=== PATIENT | female | born 1995 | race Caucasian/White ===

== ENCOUNTER 2017-08-26 19:44 | Emergency (ER) | payer OTHER ==
[2017-08-26 20:46] LABS: ABS Basophils 0 10^3/ul (0-0.2); ABS Eosinophils 0 10^3/ul (0-0.6); ABS Lymphocytes 2.3 10^3/ul (1.0-4.8); ABS Monocytes 0.5 10^3/ul (0-0.8); ABS Nucleated RBC 0 10^3/ul; Eosinophil % 0 % (0-6); Hematocrit 40 % (35-47); Hemoglobin 14.1 g/dl (12.0-16.0); Lymphocyte % 21.4 % (25-47); Mean Corpuscular HGB Conc 35 g/dl (31-36); Mean Corpuscular Hemoglobin 31 pg (27-31); Mean Corpuscular Volume 89 fL (80-97); Mean Platelet Volume 8.5 um3 (7.4-10.4); Nucleated Red Blood Cells % 0; Platelet Count 198 10^3/ul (150-450); Red Blood Count 4.52 10^6/ul (4.0-5.4); Red Cell Distribution Width 13 % (10.5-15); White Blood Count 10.8 10^3/ul (3.5-10.8)
[2017-08-26 21:08] LABS: EGFR Non-African American 113.4 (>60)
[2017-08-26 21:41] LABS: Urine Appearance Clear; Urine Blood 3+ (Negative); Urine Color Straw; Urine Ketones Negative (Negative); Urine Protein Negative (Negative); Urine Specific Gravity 1.004 (1.010-1.030); Urine Urobilinogen Negative (Negative)
--- NOTE | 2017-08-26 21:41 | ED ---
Jeremi Mckeon Thomas, scribed for Conner Almendarez MD on 08/26/17 at 2113 . Psychiatric Complaint - HPI Summary HPI Summary: The patient is a 21 year old female who brought herself to the emergency department today with suicidal ideation. She has a history of anxiety and depression. She is on Effexor. She used some marijuana earlier today. - History Of Current Complaint Chief Complaint: EDMentalHealth Time Seen by Provider: 08/26/17 20:06 Hx Obtained From: Patient Onset/Duration: Still Present Severity Currently: Moderate Character: Depressed Aggravating Factor(s): Nothing Alleviating Factor(s): Nothing Related History: Positive For: Prior Psychiatric Issues Has Suicidal: Reports: Thoughts - Allergies/Home Medications Allergies/Adverse Reactions: Allergies Allergy/AdvReac Type Severity Reaction Status Date / Time amoxicillin Allergy Rash Verified 08/26/17 19:46 PMH/Surg Hx/FS Hx/Imm Hx EENT History: Denies: Hx Deafness Psychiatric History: Reports: Hx Anxiety, Hx Depression Infectious Disease History: No Infectious Disease History: Denies: Traveled Outside the [place] in Last 30 Days - Family History Known Family History: Negative: Blood Disorder - Social History Alcohol Use: Occasionally Substance Use Type: Reports: Marijuana Smoking Status (MU): Light Every Day Tobacco Smoker Review of Systems Negative: Fever Positive: Other - SI All Other Systems Reviewed And Are Negative: Yes Physical Exam - Summary Physical Exam Summary: General: well-appearing, no pain distress Skin: warm, color reflects adequate perfusion, dry Head: normal Eyes: EOMI, VICTOR MANUEL ENT: normal Neck: supple, nontender Respiratory: CTA, breath sounds present Cardiovascular: RRR Abdomen: soft, nontender Bowel: present Musculoskeletal: normal, strength/ROM intact Neurological: normal, sensory/motor intact, A&O x3 Psychological: affect/mood appropriate Triage Information Reviewed: Yes Vital Signs On Initial Exam: Initial Vitals Temp Pulse Resp BP Pulse Ox 99.5 F 123 20 136/96 99 08/26/17 19:46 08/26/17 19:46 08/26/17 19:46 08/26/17 19:46 08/26/17 19:46 Vital Signs Reviewed: Yes Diagnostics - Vital Signs Vital Signs Temp Pulse Resp BP Pulse Ox 08/26/17 19:46 99.5 F 123 20 136/96 99 - Laboratory Lab Results: Lab Results 08/26/17 08/26/17 Range/Units 20:38 20:39 WBC 10.8 (3.5-10.8) 10^3/ul RBC 4.52 (4.0-5.4) 10^6/ul Hgb 14.1 (12.0-16.0) g/dl Hct 40 (35-47) % MCV 89 (80-97) fL MCH 31 (27-31) pg MCHC 35 (31-36) g/dl RDW 13 (10.5-15) % Plt Count 198 (150-450) 10^3/ul MPV 8.5 (7.4-10.4) um3 Neut % (Auto) 73.8 (38-83) % Lymph % (Auto) 21.4 L (25-47) % [place] % (Auto) 4.4 (0-7) % Eos % (Auto) 0 (0-6) % Baso % (Auto) 0.4 (0-2) % Absolute Neuts (auto) 8.0 H (1.5-7.7) 10^3/ul Absolute Lymphs (auto) 2.3 (1.0-4.8) 10^3/ul Absolute Monos (auto) 0.5 (0-0.8) 10^3/ul Absolute Eos (auto) 0 (0-0.6) 10^3/ul Absolute Basos (auto) 0 (0-0.2) 10^3/ul Absolute Nucleated RBC 0 10^3/ul Nucleated RBC % 0 Sodium 138 L (139-145) mmol/L Potassium 3.8 (3.5-5.0) mmol/L Chloride 105 (101-111) mmol/L Carbon Dioxide 25 (22-32) mmol/L Anion Gap 8 (2-11) mmol/L BUN 8 (6-24) mg/dL Creatinine 0.67 (0.51-0.95) mg/dL Est GFR ( Amer) 145.8 (>60) Est GFR (Non-Af Amer) 113.4 (>60) BUN/Creatinine Ratio 11.9 (8-20) Glucose 92 (70-100) mg/dL Calcium 9.2 (8.6-10.3) mg/dL Total Bilirubin 0.40 (0.2-1.0) mg/dL AST 17 (13-39) U/L ALT 9 (7-52) U/L Alkaline Phosphatase 69 (34-104) U/L Total Protein 6.7 (6.4-8.9) g/dL Albumin 4.2 (3.2-5.2) g/dL Globulin 2.5 (2-4) g/dL Albumin/Globulin Ratio 1.7 (1-3) TSH Pending Beta HCG, Quant Pending Salicylates < 2.50 (<30) mg/dL Acetaminophen < 15 mcg/mL Serum Alcohol < 10 (<10) mg/dL Result Diagrams: 08/26/17 20:39 08/26/17 20:38 Lab Statement: Any lab studies that have been ordered have been reviewed, and results considered in the medical decision making process. Course/Dx - Course Assessment/Plan: MHE and disposition are pending at shift change. Patient is signed out to Dr. Ji. - Differential Dx/Clinical Impression Provider Diagnosis: Mental health problem Discharge - Sign-Out/Discharge Documenting (check all that apply): Sign-Out Patient Signing out patient TO: Kin Ji - Discharge Plan Condition: Stable [place] [place]errals: Bindu Lane NP [Primary Care Provider] - - Billing Disposition and Condition Condition: STABLE [place]position[place] [facility] [place] The documentation as recorded by the Jeremi black Thomas accurately reflects the service I personally performed and the decisions made by me, Conner Almendarez MD.
--- NOTE | 2017-08-27 06:32 | PN ---
ED Flex Patient Progress Note Subjective: This is a 22 year-old F who is pending psychiatric eval secondary to worsening anxiety, depression . Pt offers no complaints at this time. NOTE: hematuria is most likely 2ndry to the fact she is currently menstruating. Objective: Vitals: Most recent vital signs documented below. General NAD, Alert and oriented x3. Heart: rrr s1/s2 Lungs: CTA breathing easily Laboratory: Current laboratory results documented below. Assessment: worsening anxiety/depression Plan: Pending psychiatric eval. will follow up daily ___while in ED__. Vital Signs Temp Pulse Resp BP Pulse Ox 97.8 F 64 14 111/72 99 08/27/17 06:29 08/27/17 06:29 08/27/17 06:29 08/27/17 06:29 08/27/17 06:29 Lab Results - Entire Visit 08/26/17 08/26/17 08/26/17 21:19 21:19 20:39 WBC 10.8 RBC 4.52 Hgb 14.1 Hct 40 MCV 89 MCH 31 MCHC 35 RDW 13 Plt Count 198 MPV 8.5 Neut % (Auto) 73.8 Lymph % (Auto) 21.4 L [place] % (Auto) 4.4 Eos % (Auto) 0 Baso % (Auto) 0.4 Absolute Neuts (auto) 8.0 H Absolute Lymphs (auto) 2.3 Absolute Monos (auto) 0.5 Absolute Eos (auto) 0 Absolute Basos (auto) 0 Absolute Nucleated RBC 0 Nucleated RBC % 0 Sodium Potassium Chloride Carbon Dioxide Anion Gap BUN Creatinine Est GFR ( Amer) Est GFR (Non-Af Amer) BUN/Creatinine Ratio Glucose Calcium Total Bilirubin AST ALT Alkaline Phosphatase Total Protein Albumin Globulin Albumin/Globulin Ratio TSH Beta HCG, Quant Urine Color Straw Urine Appearance Clear Urine pH 7.0 Ur Specific [place] 1.004 L Urine Protein Negative Urine Ketones Negative Urine Blood 3+ A Urine Nitrate Negative Urine Bilirubin Negative Urine Urobilinogen Negative Ur Leukocyte Esterase Negative Urine WBC (Auto) Absent Urine RBC (Auto) Trace(0-2/hpf) Ur Squamous Epith Cells Present A Urine Bacteria Absent Urine Glucose Negative Salicylates Urine Opiates Screen None detected Acetaminophen Ur Barbiturates Screen None detected Ur Phencyclidine Scrn None detected Ur Amphetamines Screen None detected U Benzodiazepines Scrn None detected Urine Cocaine Screen None detected U Cannabinoids Screen Presumptive positive A Serum Alcohol 08/26/17 20:38 WBC RBC Hgb Hct MCV MCH MCHC RDW Plt Count MPV Neut % (Auto) Lymph % (Auto) [place] % (Auto) Eos % (Auto) Baso % (Auto) Absolute Neuts (auto) Absolute Lymphs (auto) Absolute Monos (auto) Absolute Eos (auto) Absolute Basos (auto) Absolute Nucleated RBC Nucleated RBC % Sodium 138 L Potassium 3.8 Chloride 105 Carbon Dioxide 25 Anion Gap 8 BUN 8 Creatinine 0.67 Est GFR ( Amer) 145.8 Est GFR (Non-Af Amer) 113.4 BUN/Creatinine Ratio 11.9 Glucose 92 Calcium 9.2 Total Bilirubin 0.40 AST 17 ALT 9 Alkaline Phosphatase 69 Total Protein 6.7 Albumin 4.2 Globulin 2.5 Albumin/Globulin Ratio 1.7 TSH 1.19 Beta HCG, Quant < 0.60 Urine Color Urine Appearance Urine pH Ur Specific Kimberly Urine Protein Urine Ketones Urine Blood Urine Nitrate Urine Bilirubin Urine Urobilinogen Ur Leukocyte Esterase Urine WBC (Auto) Urine RBC (Auto) Ur Squamous Epith Cells Urine Bacteria Urine Glucose Salicylates < 2.50 Urine Opiates Screen Acetaminophen < 15 Ur Barbiturates Screen Ur Phencyclidine Scrn Ur Amphetamines Screen U Benzodiazepines Scrn Urine Cocaine Screen U Cannabinoids Screen Serum Alcohol < 10
[2017-08-27 14:08] VITALS: BP 125/78
--- NOTE | 2017-08-27 15:53 | ED ---
I, Juan Francisco Varela, scribed for Gabriel Green MD on 08/27/17 at 1411 . Progress - Progress Note Progress Note: This patient was signed out from Dr. Ji awaiting MHE. After a MHE by Dr. Kim the patient was deemed stable to return home. She will follow up with family health services and counseling in [place]. - Consult/PCP Time Called: 21:34 Course/Dx - Diagnoses Provider Diagnoses: Anxiety Discharge - Sign-Out/Discharge Documenting (check all that apply): Discharge/Admit/Transfer, Receiving Sign-Out Receiving patient FROM: Kin Ji - Discharge Plan Condition: Stable [place] [place] Referrals: Bindu Lane NP [Primary Care Provider] - The documentation as recorded by the Nichole black Gabriel accurately reflects the service I personally performed and the decisions made by , Gabriel Green MD.
== END 2017-08-27 14:07 ==
LOC: ED 19:44
DX: F41.8 Other specified anxiety disorders (principal); F17.200 Nicotine dependence, unspecified, uncomplicated; Z88.3 Allergy status to other anti-infective agents
CPT/HCPCS: 36415; 80053; 80307; 80320; 80329; 81003; 81015; 84443; 84702; 85025; 99284; G0480